=== PATIENT | female | born 2000 ===

== ENCOUNTER 2021-05-24 15:42 | Outpatient (CLI) | payer BC, SELFPAY ==
[2021-05-24 16:09] LABS: Hematocrit 40.9 % (37.0-47.0); Hemoglobin 13.5 g/dL (12.0-15.0); Mean Corpuscular Hemoglobin 30.3 pg (26-34); Mean Corpuscular Volume 91.7 fl (80-100); Mean Platelet Volume 8.9 fl (7.4-10.4); Platelet Count Result 234 k/mm3 (150-375); Red Blood Count 4.46 M/mm3 (4.2-5.4); Red Cell Distribution Width 11.5 % (11.5-14.5); White Blood Count 7.8 K/mm3 (4.5-10.0)
== END 2021-05-24 15:43 | disposition home or self-care (01) ==
LOC: ANHLAB 15:42
PROVIDERS: PCP Physician Assistant; Visit Provider Physician Assistant
DX: B34.9 Viral infection, unspecified (principal); R19.7 Diarrhea, unspecified; R31.29 Other microscopic hematuria
CPT/HCPCS: 36415; 85027

== ENCOUNTER 2021-05-28 11:57 | Outpatient (CLI) | payer BC, SELFPAY | END 2021-05-28 11:58 | disposition home or self-care (01) | PROVIDERS: PCP Physician Assistant; Visit Provider Physician Assistant | DX: R19.7 Diarrhea, unspecified (principal); R31.29 Other microscopic hematuria | CPT/HCPCS: 36415; 87045; 87046; 87427 ==